=== PATIENT | male | born 1985 | race Caucasian/White ===

== ENCOUNTER → 2020-10-31 | Outpatient (CLI) | payer BC ==
[~2020-10-31] MED LIST: BACTRIM DS 8001 TA1 PO; BACTROBAN2% TP; CIPRO500 MG PO; CIPROFLOXACIN500 MG PO; KEFLEX500 MG; KEFLEX500 MG PO; MOTRIN800 MG PO; PERCOCET 325 MG1 TA2 PO; VIBRAMYCIN100 MG PO; VICODIN 5/500 505 MG PO
== END ==
LOC: COVID19 12:51
PROVIDERS: ATTEND Family Medicine
DX: U07.1 COVID-19 (principal)